=== PATIENT | female | born 1980 | race Caucasian/White ===

== ENCOUNTER 2025-03-14 09:07 | Emergency (ER) | payer MEDICARE, MEDICAID ==
[~2025-03-14] VITALS: Ht 170.2 cm; Wt 116.8 kg
--- NOTE | 2025-03-14 10:26 | Physician Documentation ---
History of Present Illness Chief Complaint: Diarrhea Stated Complaint: ABNORMAL LABS Time Seen by MD: 10:00 OK to notify your PCP?: Yes Primary Medical Doctor: No PCP Source: patient Mode of Arrival: Ambulatory HPI A 44 years old female with PMH of diagnosed Ulcerative Colitis on Mesalamine, IBD, Celiac disease on Gluten free diet, S/p abdominoplasty for obesity, UTI, Autism, ADHD, PTSD, Fobromyalgia, dysgraphia and sulfa allergy presented to the ER for the chronic a month long bloody diarrhea, and intermittent abdominal cramping who was sent from the urgent care where they found that patient has hypokalaemia with 3.2. Pt reported that she has diagnosed UC 5 years back and last time Colonoscopy was done by Dr Greenfield where she got the result free from malignancy. The abd pain mostly at the lower abd, intermittent mixed cramping and stabbing which was associated with diet and the one month long of the mixed blood chronic diarrhea without having tenesmus and nausea but no vomiting. She denied for the any stress induced and relieving pain from the BM. She did not run any fever with chills and rigors. She lost 20 lbs in a month intentionally while she keeps herself on the keto diet. She dose not have any family history of cancer except for her dad has the prostate cancer. She denied for travelling outside of the country. She denied for any palpitations, lightheadness, dizziness and muscle cramping except found to have the right upper cramp and contracture on the BP cuff inflation. She was not seen by any GI specialist for more than 3 years, and lost her insurance for the mesalamine for 6months but got back on it since a week ago. Medication Reconciliation Allergies: Coded Allergies: Sulfa (Sulfonamide Antibiotics) (Verified Allergy, Intermediate, rash and resp distress, 03/14/25) Scheduled Potassium Chloride* (K-Dur*), 1 TAB PO Q12H Scheduled PRN ONDANSETRON ODT 4mg tablet (Ondansetron Odt), 1 TAB PO Q6H PRN PRN for nausea/vomiting Past Medical History Other Past Medical History: diagnosed Ulcerative Colitis on Mesalamine, IBD, Celiac disease on Gluten free diet, UTI, Autism, ADHD, PTSD, Fobromyalgia, dysgraphia and sulfa allergy Past Surgical History: other Other Past Surgical History: S/p abdominoplasty for obesity Alcohol Use: None Drug Use: none Lives with: Father Lives In: Home Review of Systems All Other Systems at this time: Reviewed and Negative ROS described in HPI Physical Exam Vital Signs: RN Vital Signs have been reviewed: Yes, Temperature: 97.0, Source: Oral, Heart Rate: 102, Respiratory Rate: 18, BP: 146/94, Pulse Oximetry: 96, Weight: 116.820 Physical Exam General: Well alert, well oriented, not confused, not agitated, not in acute distress, well cooperated during the physical. HEENT: Conjunctive are pink, sclerae clear, no icterus, pupil is equal in both sides, reactive to light, no ear discharge, no pharyngeal erythema or an edema, mouth and lips are moist. Neck: Supple, no JVD, no lymphadenopathy and thyromegaly. Lungs:Equal air entry on both lungs, no additional sounds Heart: S1-S2 regular sinus rhythm and, regular rate, no gallops, no rubs, no murmurs Abdomen: No visible peristalsis, Bowel sounds present on auscultation, soft, widespread tenderness rom over the left flank, lower abd, no guarding, no rigidity Extremities: No obvious deformities, no pitting edema bilaterally, capillary refill intact, able to wiggle toes both sides, peripheral pulsations are intact on both sides FILENET ARCHITECT: No focal neurological deficits, no motor and sensory weakness in all 4 extremities, could move all 4 extremities Musculoskeletal: No joint swelling, deformities, inflammations, and no scoliosis and back tenderness Skin: No active skin lesions and rashes Progress Results/Orders Results/Orders Orders - VICKY,TIN, RES Cbc/Diff (03/14/25 10:04) CMP (03/14/25 10:04) Procalcitonin (03/14/25 10:04) ESR (03/14/25 10:04) Occult Bld Stool (03/14/25 10:04) C Diff Toxin (03/14/25 10:04) Wrights Stain For Stool Wbcs (03/14/25 10:04) Cult Stool (Enteric Pathogens) (03/14/25 10:04) TSH (03/14/25 10:04) Hgb A1c (03/14/25 10:04) Lipid Panel (03/14/25 10:04) Urinalysis, Cult If Indicated (03/14/25 10:07) Drug Screen, Urine (03/14/25 10:07) Ringers Solution, Lacted (Lactated Ringe (03/14/25 10:15) Buspirone Tablet (Buspar Tablet) (03/14/25 10:15) Pregabalin Capsule (Lyrica Capsule) (03/14/25 10:15) Mesalamine 1.2gm Tab.Dr (Lialda 1.2gm Er (03/14/25 10:15) Vital Signs 03/14/25 03/14/25 03/14/25 09:25 09:36 09:41 Temp 97.0 97.0 Pulse 111 102 Resp 16 18 B/P (MAP) 140/102 146/94 (111) Pulse Ox 96 96 Medical Decision Making Additional information obtaine: N/A (a) Findings A 44 years old female with PMH of diagnosed Ulcerative Colitis on Mesalamine, IBD, Celiac disease on Gluten free diet, S/p abdominoplasty for obesity, UTI, Autism, ADHD, PTSD, Fobromyalgia, dysgraphia and sulfa allergy presented to the ER for the chronic a month long bloody diarrhea, and intermittent abdominal cramping who was sent from the urgent care where they found that patient has hypokalaemia with 3.2. # Abdominal pain w/ chronic bloody diarrhea # Hx of UC, IBD # Electrolyte imbalances- 2.4 -Given hx of having established Dx UC and IBD presented w/ chronic diarrhea bloody one with the intermittent crampy abd pain, suggesting the pt has a UC flared up. -Pt was given one time dose of her usual mesalamine -IV LR 1L bolus was given in ER -Suggested to continue her care including GI consultation -Electrolyte lost from GI loss should be replaced with the electrolytes per protocol, given one time dose of PO K+ 40 mEq stat in ER x 2 times -follow up with the pending Stool study including WBC in stool OR fecal calprotectin would be ideal. -discharge the patient to PCP or Urgent care to recheck the CMP and CBC with the discharge meds of PO Kdur 20 mEq BID for 7 days, along with the pO zofran as needed for the nausea. # Chronic non-specific erythrocytosis ( Previous labs) -suggested GENA-2 inhibitors and etiology of non specific erythrocytosis -she denied any hx of smoking and hypoxia, no dx hx of RCC Differential Dx:Considerations: Bowel obstruction, Diverticular disease, Gastritis/PUD, Inflammatory BD Departure Time of Disposition: 13:27 Disposition: 01 HOME / SELF CARE / HOMELESS Impression: Primary Impression: Hypokalemia Additional Impressions: Chronic diarrhea Ulcerative colitis Condition: Stable Additional Instructions: - immediate return to the ER for any emergency conditions including terrible continuous progressive abdominal pain with intolerable progressive nausea and diarrhea with blood, etc - Follow up with PCP or urgent care to follow up to recheck the CBC and CMP including potassium levels in a week after released from ER - continue taking pO Potassium tabs 20 mEq twice daily for a week and PO zofran as needed for the nausea - Set up with the GI specialist for further management for UC - Stick with the diet restriction including Gluten free etc Referrals: NO PRIMARY CARE PROVIDER (PCP) Prescriptions ONDANSETRON ODT 4mg tablet (ONDANSETRON ODT) 4 Mg Tab.rapdis 1 TAB PO Q6H PRN PRN for nausea/vomiting for 4 Days, #16 TAB 0 Refills Prov: PATRICIO PERRY, FINN 03/14/25 Potassium Chloride* (K-Dur*) 20 Meq Tab.prt.sr 1 TAB PO Q12H for 7 Days, #14 TAB Prov: PATRICIO PERRY, RES 03/14/25 Additional Comment Seen with PA/COMPUTER TECHNICIAN The patient was seen with the medical consultant. I have reviewed the resident's note and agree with the note and the assessment and plan as written. I have supervised all aspects of the residents care. The patient presents with lower abdominal pain and diarrhea patient has a low potassium she is able to tolerate oral potassium her abdominal exam was otherwise benign. The patient will be discharged with follow up by GI, the patient will be placed on oral potassium. Her labs were reviewed her P previous hospitalizations were reviewed the patient's allopathic doctor was interpreted as a sinus rhythm in her pulse oximetry was interpreted as adequate has a normal Signature Scribe Signature: No scribe Attestation: The note accurately reflects work and decisions made by me.Gary Rios MD 03/14/25 14:41 Resident attestation: Patient was seen, examined and discussed with attending ER , Dr. Brittny PERRY MD Internal Medicine Resident, PGY3 [facility] PATRICIO PERRY, RES Mar 14, 2025 10:26 GARY RIOS MD Mar 14, 2025 14:42
[2025-03-14 10:30] LABS: MEAN PLATELET VOLUME 9.4 FL (7.4-10.4); RED CELL DISTRIBUTION WIDTH 13.4 % (11.5-14.5)
[2025-03-14 10:48] LABS: CHOL/HDL RATIO 3.0 (0.00-4.99); CREATININE 0.86 MG/DL (0.40-0.90); LDL CHOLESTEROL 66 MG/DL (50-100); TOTAL CARBON DIOXIDE 29.5 MMOL/L (24-32); eCRCL 79 ML/MIN; eGFR 71 ML/MIN
[2025-03-14] MEDS: ringers solution, lacted 1,000 ML IV ONE (10:48)
[2025-03-14] MEDS: mesalamine 1.2gm ER tablet PO ONE (10:49)
[2025-03-14] MEDS ORDERED: potassium Cl 20 mEq SR tablet PO STA ×2 (11:01→11:06)
--- NOTE | 2025-03-14 11:13 | ELECTROCARDIOGRAPH REPORT ---
[facility] Test Date: 2025-03-14 Test Time: 11:10:19 Pat Name: RADHA SCHWARTZ Department: EMERGENCY ROOM Room: Gender: F Medication Reconciliation Technician: LAURIE : 1980 Requested By: PATRICIO PERRY Order Number: [id number] Reading MD: Dr. DIESI Aviles Measurements Intervals [place] Rate: 87 P: 52 MO: 146 QRS: 22 QRSD: 92 T: 43 QT: 373 QTc: 449 Interpretive Statements Sinus rhythm Electronically Signed On 03-15-2025 17:17:[address] DEISI Aviles Please click the below link to view image of tracing.
[2025-03-14] MEDS: magnesium sulf-water 2g/50mL 50 ML IV ONE (11:18)
[2025-03-14] MEDS: potassium Cl 20 mEq SR tablet PO STA ×2 (11:33→13:39)
[2025-03-14 12:21] LABS: LEUKOCYTE ESTERASE ,URINE NEGATIVE (Neg); NITRITES, URINE NEGATIVE (Neg); OCCULT BLOOD,URINE NEGATIVE (Neg)
[2025-03-14 12:29] LABS: URINE AMPHETAMINE SCREEN NEGATIVE (Neg); URINE BARBITUATE SCREEN NEGATIVE (Neg); URINE BENZODIAZEPINES SCREEN NEGATIVE (Neg); URINE CANNABINOID SCREEN POSITIVE (Neg); URINE COCAINE SCREEN NEGATIVE (Neg); URINE METHADONE SCREEN NEGATIVE (Neg); URINE OPIATE SCREEN NEGATIVE (Neg); URINE PHENCYCLIDINE SCREEN NEGATIVE (Neg)
[2025-03-14 12:36] LABS: UA COLLECTION TYPE NON-SPECIFIED
[2025-03-14] MEDS ORDERED: ONDA-243 PO ×2 (13:33→14:19)
[2025-03-14] MEDS ORDERED: POTA-207 PO ×2 (13:33→14:19)
[2025-03-14 14:35] VITALS: BP 119/78; PULSE 88; RESP 20; TEMP 97.8; O2SAT 98
== END 2025-03-14 14:37 | disposition home or self-care (01) ==
LOC: ER 09:08
DX: E87.6 Hypokalemia (principal); K51.911 Ulcerative colitis, unspecified with rectal bleeding; G89.29 Other chronic pain; R19.7 Diarrhea, unspecified; Z88.2 Allergy status to sulfonamides; Z87.440 Personal history of urinary (tract) infections
CPT/HCPCS: 36415; 80053; 80061; 80305; 81003; 83036; 84145; 84443; 85025; 85651; 93005; 96365; 99285; J7120